=== PATIENT | male | born 1970 | race Caucasian/White ===

== ENCOUNTER 2016-07-15 07:30 | Day surgery (SDC) | payer BC ==
--- NOTE | ~2016-07-15 | EGD ---
EGD REPORT [facility] [address] [place] [address] NAME: KAREN SCHAEFFER : [birth year] STATUS : [facility] [place] PAT#: [id number] AGE: 45 ADM/REG DATE : 07/15/16 MR#: [id number] REPORT SERV DATE: 07/15/16 DICTATED BY: KAREN VALENTINE DATE: 07/15/16 REPORT STATUS : Draft [facility]ANSCRIBED BY: [facility] DATE: 07/15/16 Endoscopy Center Patient Name: Karen Schaeffer Date of : 1970 Attending MD: KAREN VALENTINE MD Procedure Date No Time: 07/15/2016 Procedure: Upper GI endoscopy Indications: Epigastric abdominal pain, Nausea with vomiting Referring MD: KIMI DILLARD MD Medicines: Monitored Anesthesia Care Complications: No immediate complications. Procedure: Pre-Anesthesia Assessment: - ASA Grade Assessment: II - A patient with mild systemic disease. After obtaining informed consent, the endoscope was passed under direct vision. Throughout the procedure, the patient's blood pressure, pulse, and oxygen saturations were monitored continuously. The GIF [id number] [id number] was introduced through the mouth, and advanced to the afferent and efferent jejunal loops. The upper GI endoscopy was accomplished without difficulty. The patient tolerated the procedure well. Findings: The examined esophagus was normal. Striped moderately erythematous mucosa without bleeding was found in the gastric body. Biopsies were taken with a cold forceps for histology. The examined jejunum was normal. 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 The gastrojejunal anastomosis was characterized by healthy appearing mucosa and mild stenosis. This was traversed. The efferent limb was examined. The afferent limb was examined. A TTS dilator was passed through the scope. Dilation with an 18-19-20 mm pyloric balloon dilator was performed. Estimated blood loss was minimal. Impression: - Normal esophagus. - Erythematous mucosa in the gastric body. Biopsied. - Normal examined jejunum. 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 Dilated. Recommendation: - Await pathology results. - Patient has a contact number available for emergencies. The signs and symptoms of potential delayed complications were discussed with the patient. Return to EGD REPORT [address] [place]. [address] NAME: KAREN SCHAEFFER : [birth year] STATUS : [facility] [place] PAT#: [id number] AGE: 45 ADM/REG DATE : 07/15/16 MR#: [id number] REPORT SERV DATE: 07/15/16 DICTATED BY: KAREN VALENTINE DATE: 07/15/16 REPORT STATUS : Draft TRANSCRIBED BY: [employer] DATE: 07/15/16 normal activities tomorrow. Written discharge instructions were provided to the patient. - Regular diet. - Recommend an oral antibiotic. - Return to GI clinic in 4 weeks. Procedure Code(s): --- Professional --- 49669, Esophagogastroduodenoscopy, flexible, transoral; with biopsy, single or multiple Diagnosis Code(s): --- Professional --- K31.9, Disease of stomach and duodenum, unspecified Z98.0, Intestinal bypass and anastomosis status R10.13, Epigastric pain R11.2, Nausea with vomiting, unspecified CPT copyright 2013 [employer]. All rights reserved. The codes documented in this report are preliminary and upon patrol sergeant review may be revised to meet current compliance requirements. KAREN VALENTINE MD 07/15/2016 9:40 AM This report has been signed electronically. Number of Addenda: 0 Note Initiated On: 07/15/2016 9:14 AM Scope Withdrawal Time 0 hours 0 minutes 0 seconds [address] [id number]
[~2016-07-15 07:30] MED LIST: EXCEDRIN MIGRAINE PO; GAVISCO2 PO; LEVSINTAB PO; NORCO1 TAB PO; PERCOCET1 TA2 PO; PR25 PO; PROTONIX PO; RANITIDINE300 MG PO; SUCR PO
== END 2016-07-15 23:59 | disposition home or self-care (01) ==
LOC: DMU 07:30
PROVIDERS: Internal Medicine Gastroenterology
PROC: 0DB68ZX Excision of Stomach, Via Natural or Artificial Opening Endoscopic, Diagnostic (ICD-10-PCS; principal; 2016-07-15 09:00)
PROC: 0D788ZZ Dilation of Small Intestine, Via Natural or Artificial Opening Endoscopic (ICD-10-PCS; 2016-07-15 09:00)
DX: K31.9 Disease of stomach and duodenum, unspecified (principal); K91.89 Other postprocedural complications and disorders of digestive system; G43.909 Migraine, unspecified, not intractable, without status migrainosus; K21.9 Gastro-esophageal reflux disease without esophagitis; K31.84 Gastroparesis; I10 Essential (primary) hypertension; Z79.899 Other long term (current) drug therapy; Z98.0 Intestinal bypass and anastomosis status; Z90.89 Acquired absence of other organs; Z98.890 Other specified postprocedural states; Z87.442 Personal history of urinary calculi; Z90.49 Acquired absence of other specified parts of digestive tract
CPT/HCPCS: 88305; C1725; C1726